=== PATIENT | female | born 1970 | race American Indian/Alaskan Native ===

== ENCOUNTER 2018-11-18 00:13 | Emergency (ER) | payer BC ==
[2018-11-18] MEDS ORDERED: Morphine 2 MG/ML Syringe IVPUSH ONE (00:17)
[2018-11-18] MEDS ORDERED: Ondansetron 4 MG/2 ML SDV IVPUSH ONE (00:17)
[2018-11-18] MEDS ORDERED: Sodium Chloride 0.9% 1,000 ML IV ONE (00:17)
--- NOTE | 2018-11-18 00:19 | EDM.PDOC ---
ED HPI GENERAL MEDICAL PROBLEM - General Stated Complaint: RIGHT SIDE PAIN Time Seen by Provider: 11/18/18 00:18 Source of Information: Reports: Patient - History of Present Illness INITIAL COMMENTS - FREE TEXT/NARRATIVE: HISTORY AND PHYSICAL: History of present illness: [Presents with right-sided abdominal pain radiating down her inner leg that began at 6 PM no fever nausea vomiting chills sweats ] Review of systems: As per history of present illness and below otherwise all systems reviewed and negative. Past medical history: As per history of present illness and as reviewed below otherwise noncontributory. Surgical history: As per history of present illness and as reviewed below otherwise noncontributory. Social history: No reported history of drug or alcohol abuse. Family history: As per history of present illness and as reviewed below otherwise noncontributory. Physical exam: HEENT: Atraumatic, normocephalic, pupils reactive, negative for conjunctival pallor or scleral icterus, mucous membranes moist, throat clear, neck supple, nontender, trachea midline. Lungs: Clear to auscultation, breath sounds equal bilaterally, chest nontender. Heart: S1S2, regular, negative for clicks, rubs, or JVD. Abdomen: Soft, nondistended, nontender. Negative for masses or hepatosplenomegaly. Negative for costovertebral tenderness. Pelvis: Stable nontender. Genitourinary: Deferred. Rectal: Deferred. Extremities: Atraumatic, negative for cords or calf pain. Neurovascular unremarkable. Neuro: Awake, alert, oriented. Cranial nerves II through XII unremarkable. Cerebellum unremarkable. Motor and sensory unremarkable throughout. Exam nonfocal. Diagnostics: [CbC CMP lipase UA CT abdomen pelvis no contrast ] Therapeutics: [ normal saline Zofran Morphine 2 mg IV ] Impression: masS lesion right adnexa 5 cm [ abdominal pain] Definitive disposition and diagnosis as appropriate pending reevaluation and review of above. Abdomen Pain Score (Numeric/FACES): 10 - Related Data Allergies Allergy/AdvReac Type Severity Reaction Status Date / Time No Known Allergies Allergy Verified 11/18/18 00:26 Home Meds: Home Meds . [No Known Home Meds] 10/23/15 [History] Past Medical History HEENT History: Reports: None Cardiovascular History: Reports: None Respiratory History: Reports: None Gastrointestinal History: Reports: None Genitourinary History: Reports: None Neurological History: Reports: None Psychiatric History: Reports: None Endocrine/Metabolic History: Reports: None Hematologic History: Reports: None Immunologic History: Reports: None Oncologic (Cancer) History: Reports: None Dermatologic History: Reports: None - Infectious Disease History Infectious Disease History: Reports: None - Past Surgical History Female Surgical History: Reports: Breast Biopsy, Section Musculoskeletal Surgical History: Reports: Carpal Tunnel ED ROS GENERAL - Review of Systems Review Of Systems: See Below ED EXAM, GENERAL - Physical Exam Exam: See Below Course - Vital Signs Last Recorded V/S: Last Vital Signs Temp 96.6 F 11/18/18 00:15 Pulse 69 11/18/18 00:15 Resp 18 11/18/18 00:15 BP 126/80 11/18/18 00:15 Pulse Ox 98 11/18/18 00:15 - Orders/Labs/Meds Orders: Active Orders 24 hr Category Date Time Status CULTURE BLOOD [BC] Stat Lab 11/18/18 00:39 Received CULTURE BLOOD [BC] Stat Lab 11/18/18 01:05 Results Blood Culture x2 Reflex Set [OM.PC] Stat Oth 11/18/18 00:17 Ordered Labs: Laboratory Tests 11/18/18 11/18/18 11/18/18 Range/Units 00:24 00:24 01:56 WBC 11.19 H (4.0-11.0) K/uL RBC 5.21 (4.30-5.90) M/uL Hgb 15.5 (12.0-16.0) g/dL Hct 44.4 (36.0-46.0) % MCV 85.2 (80.0-98.0) fL MCH 29.8 (27.0-32.0) pg MCHC 34.9 (31.0-37.0) g/dL RDW Std Deviation 39.8 (28.0-62.0) fl RDW Coeff of Sola 13 (11.0-15.0) % Plt Count 321 (150-400) K/uL MPV 9.90 (7.40-12.00) fL Neut % (Auto) 81.6 H (48.0-80.0) % Lymph % (Auto) 11.0 L (16.0-40.0) % Faulkner % (Auto) 6.9 (0.0-15.0) % Eos % (Auto) 0.2 (0.0-7.0) % Baso % (Auto) 0.3 (0.0-1.5) % Neut # (Auto) 9.1 H (1.4-5.7) K/uL Lymph # (Auto) 1.2 (0.6-2.4) K/uL Faulkner # (Auto) 0.8 (0.0-0.8) K/uL Eos # (Auto) 0.0 (0.0-0.7) K/uL Baso # (Auto) 0.0 (0.0-0.1) K/uL Sodium 135 L (136-145) mmol/L Potassium 3.6 (3.5-5.1) mmol/L Chloride 102 (98-107) mmol/L Carbon Dioxide 19.0 L (21.0-32.0) mmol/L BUN 16 (7.0-18.0) mg/dL Creatinine 0.8 (0.6-1.0) mg/dL Est Cr Clr Drug Dosing 60.24 mL/min Estimated GFR (MDRD) > 60.0 ml/min Glucose 138 H (74-106) mg/dL Calcium 9.0 (8.5-10.1) mg/dL Total Bilirubin 1.1 H (0.2-1.0) mg/dL AST 18 (15-37) IU/L ALT 22 (14-63) IU/L Alkaline Phosphatase 76 (46-116) U/L Total Protein 7.1 (6.4-8.2) g/dL Albumin 4.1 (3.4-5.0) g/dL Globulin 3.0 (2.6-4.0) g/dL Albumin/Globulin Ratio 1.4 (0.9-1.6) Lipase 153 (73-393) U/L Urine Color YELLOW Urine Appearance SLT CLOUDY Urine pH 8.5 H (5.0-8.0) Ur Specific [employer] 1.015 (1.001-1.035) Urine Protein TRACE H (NEGATIVE) mg/dL Urine Glucose (UA) NEGATIVE (NEGATIVE) mg/dL Urine Ketones 40 H (NEGATIVE) mg/dL Urine Occult Blood NEGATIVE (NEGATIVE) Urine Nitrite NEGATIVE (NEGATIVE) Urine Bilirubin NEGATIVE (NEGATIVE) Urine Urobilinogen 0.2 (<2.0) EU/dL Ur Leukocyte Esterase NEGATIVE (NEGATIVE) Urine RBC 0-1 (0-2/HPF) Urine WBC 0-1 (0-5/HPF) Ur Epithelial Cells RARE (NONE-FEW) Urine Bacteria 2+ H (NEGATIVE) Meds: Medications Discontinued Medications Generic Name Dose Route Start Last Admin Trade Name Elva PRN Reason Stop Dose Admin Sodium Chloride 1,000 mls @ 999 mls/hr 11/18/18 00:17 11/18/18 00:23 Normal Saline IV 11/18/18 01:17 999 mls/hr STAT ONE Administration Ketorolac Tromethamine 30 mg 11/18/18 01:19 11/18/18 01:24 Toradol IVPUSH 11/18/18 01:20 30 mg ONETIME ONE Administration Morphine Sulfate 2 mg 11/18/18 00:17 11/18/18 00:23 Morphine IVPUSH 11/18/18 00:18 2 mg ONETIME ONE Administration Ondansetron HCl 8 mg 11/18/18 00:17 11/18/18 00:24 Zofran IVPUSH 11/18/18 00:18 8 mg ONETIME ONE Administration Promethazine HCl 25 mg 11/18/18 01:19 11/18/18 01:26 Phenergan IM 11/18/18 01:20 25 mg ONETIME ONE Administration Departure - Departure Time of Disposition: 03:29 Disposition: Home, Self-Care 01 Condition: Good Clinical Impression: Adnexal mass, Abdominal pain - Discharge Information Referrals: Donaldo Prater MD [Primary Care Provider] - Additional Instructions: Medication as prescribed Return if symptoms persist or worsen ER referral for gynecology evaluation Monday or Monday [facility] [address] [place] [id number] The following information is given to patients seen in the emergency department who are being discharged to home. This information is to outline your options for follow-up care. We provide all patients seen in our emergency department with a follow-up referral. The need for follow-up, as well as the timing and circumstances, are variable depending upon the specifics of your emergency department visit. If you don't have a primary care physician on staff, we will provide you with a referral. We always advise you to contact your personal physician following an emergency department visit to inform them of the circumstance of the visit and for follow-up with them and/or the need for any referrals to a consulting specialist. The emergency department will also refer you to a specialist when appropriate. This referral assures that you have the opportunity for follow-up care with a specialist. All of these measure are taken in an effort to provide you with optimal care, which includes your follow-up. Under all circumstances we always encourage you to contact your private physician who remains a resource for coordinating your care. When calling for follow-up care, please make the office aware that this follow-up is from your recent emergency room visit. If for any reason you are refused follow-up, please contact the [facility] emergency department at and asked to speak to the emergency department charge nurse. - My Orders Last 24 Hours: My Active Orders 11/18/18 00:17 Blood Culture x2 Reflex Set [OM.PC] Stat 11/18/18 00:39 CULTURE BLOOD [BC] Stat 11/18/18 01:05 CULTURE BLOOD [BC] Stat - Assessment/Plan Last 24 Hours: My Active Orders 11/18/18 00:17 Blood Culture x2 Reflex Set [OM.PC] Stat 11/18/18 00:39 CULTURE BLOOD [BC] Stat 11/18/18 01:05 CULTURE BLOOD [BC] Stat
[2018-11-18 01:11] LABS: CHLORIDE,CL 102 mmol/L (98-107); SODIUM,NA 135 mmol/L (136-145)
[2018-11-18] MEDS ORDERED: Ketorolac 30 MG/ML SDV IVPUSH ONE (01:19)
[2018-11-18] MEDS ORDERED: Promethazine 25 MG/ML SDV IM ONE (01:19)
--- NOTE | 2018-11-18 03:21 | CT ---
INDICATION: Abdominal pain TECHNIQUE: CT abdomen and pelvis without contrast. COMPARISON: None FINDINGS: Lower chest: Unremarkable. Liver: Unremarkable. Spleen: Unremarkable. Pancreas: Unremarkable. Gallbladder and bile ducts: Unremarkable. Adrenal glands: Unremarkable. Kidneys: Unremarkable. No kidney or ureteral stones and no hydronephrosis. GI tract: Large amount of feces in the colon. Appendix is normal. Vascular structures: Unremarkable. Lymph nodes: Unremarkable. Miscellaneous: Unremarkable. No free air or significant free fluid. Pelvic Organs: 4.9 centimeter round mass in the right adnexa containing fat, calcification and soft tissue density. Bones: Unremarkable for age. IMPRESSION: No renal stone or hydronephrosis. No acute intra-abdominal inflammatory process identified. Large amount of feces in the colon. Right adnexal dermoid tumor. Recommend nonemergent gynecology consultation. Please note that all CT scans at this facility use dose modulation, iterative reconstruction, and/or weight-based dosing when appropriate to reduce radiation dose to as low as reasonably achievable. Dictated by Starla Malave MD @ Nov 18 2018 3:19AM Signed by Dr. Starla Malave @ Nov 18 2018 3:19AM
[2018-11-18 03:44] VITALS: BP 128/76
== END 2018-11-18 03:44 | disposition home or self-care (01) ==
LOC: MW.ED 00:13
DX: R19.09 Other intra-abdominal and pelvic swelling, mass and lump (principal)
CPT/HCPCS: 36415; 74176; 80053; 81001; 83690; 85025; 87040; 96361; 96372; 96374; 96375; 99284; J1885; J2270; J2405; J2550; J7040